=== PATIENT | female | born 1950 | race African-American/Black ===

== ENCOUNTER → 2016-10-13 | Outpatient (CLI) | payer MEDICARE, OTHER ==
[~2016-10-13] MED LIST: REGADENOSON 0.4 MG/5 ML DISP.SYRIN. IV ONE
--- NOTE | 2016-10-13 15:14 | PCVCIMAG ---
APPROVED REPORT Exam: Nuclear Stress Test Indication: Abnormal EKG, Pre-Operative CV evaluation Patient Location: Out-Patient Stress Nurse: Domonique Tomas RN, GOGO Beard Tech:Lavern GreenbergJEREMIAH rodriguez Ht: 5 ft 11 in Wt: 200 lbs BSA: 2.11 m2 HR: 75 bpm BP: 154/85 mmHg BMI: 27.8 Rhythm: SR Medical History Medical History: HTN, Hyperlipidemia, Fm Hx CAD Medications: Amlodipine, Chlorthalidone, Losartan, Pravachol Allergies: No known drug allergies Pretest Chest Pain Characteristics: No chest pain Exercise History: Sedentary Physical Disabilities: uses a cane NM EXAM: Myocardial Perfusion REST/STRESS Imaging Protocol: Rest Tc-99m/Stress Tc-99m 1 day Resting Data Rest SPECT myocardial perfusion imaging was performed in supine position 45 minutes following the intravenous injection of 11.1 mCi of Tc-99m Sestamibi. Time of rest injection: 0845 Date: 10/13/2016 Pharmacologic Stress Pharmacologic stress test was performed by injecting Regadenoson 0.4 mg IV push followed by the intravenous injection of 32.2 mCi of Tc-99m Sestamibi. Time of stress injection: 1030 Date: 10/13/2016 Administration Route: IV Administration Site: Right AC Exercise Stress Administration Route: Straight Stick Study Data Post stress, the left ventricular ejection was 78%.. SSS: 0 SRS: 0 SDS: 0 TID = 0.90. Perfusion There is a medium area of moderately reduced uptake in the mid and apical segment of the anterolateral wall which is seen on the stress images and improves on the resting images. This area thickens and moves normally and is most consistent with ischemia. Nuclear Conclusion 1. HIGH RISK STUDY Interpreted by: Rosa Branch MD Electronically Approved: 10/13/2016 15:13:11 Stress Test Details Stress Test: Pharmacologic stress testing performed using 0.4 mg of regadenoson per 5 mL given IV over 10 seconds. Reason for pharmacologic stress test: physical limitation. HR Resting HR: 75 bpmMax Heart Rate (APMHR): 154 bpm Max HR Achieved: 104 bpmTarget HR (85% APMHR): 130 bpm % of APMHR: 67 Recovery HR: 97 bpm BP Resting BP: 154/85 mmHg Max BP: 143/76 mmHg Recovery BP: 139/78 mmHg ECG Resting ECG: Sinus Rhythm Stress ECG: Sinus Tachycardia Recovery ECG: Sinus Rhythm Clinical Reason for Termination: Completed protocol Stress Symptoms: Dyspnea Exercise duration: 0 min 55 sec Symptoms resolved during recovery. Stress ECG Conclusion 1. ADEQUATE RESPONSE TO IV LEXISCAN 2. INADEQUATE HEART RATE FOR ECG DIAGNOSIS <Conclusion> 1. ADEQUATE RESPONSE TO IV LEXISCAN 2. INADEQUATE HEART RATE FOR ECG DIAGNOSIS
== END | disposition home or self-care (01) ==
LOC: PCVCIMAG 08:08
PROVIDERS: ATTEND Internal Medicine
DX: Z01.810 Encounter for preprocedural cardiovascular examination (principal); R94.31 Abnormal electrocardiogram [ECG] [EKG]; I10 Essential (primary) hypertension; E78.5 Hyperlipidemia, unspecified; Z86.79 Personal history of other diseases of the circulatory system
CPT/HCPCS: 78452; 93017; A9500; J2785